=== PATIENT | female | born 1945 | race Caucasian/White ===

== ENCOUNTER 2017-08-02 10:23 | Outpatient (CLI) | payer BC ==
--- NOTE | 2017-08-02 15:33 | CT ---
CTA OF THE ABDOMEN AND PELVIS WITH BILATERAL LOWER EXTREMITY RUNOFF UTILIZING IV CONTRAST AND 3D REF ORMATTED IMAGING: INDICATION: Pain within both legs and feet for 1 year with a history of surgical repair of a hernia and appendec beronica. COMPARISON: None. FINDINGS: ABDOMEN: The lung bases are clear. There is mild fatty infiltration of the liver. There is heterogeneous enhancement of the spleen due to the phase of contrast enhancement at the mayelin e of imaging. The pancreas and adrenal glands appear within normal limits. The kidneys are normal-appearing. No free fluid or enlarged lymph nodes are evident. PELVIS: Bladder, rectum, and perirectal soft tissues appear within normal limits. There is a mild amount of retained stool. Small bowel is normal-appearing. The bladder is unremarkable appearing. There is a fat-containing left inguinal hernia. VACULATURE: The celiac, SMA, and renal arteries appear widely patent. The ARTHUR is widely patent. No aneurysmal dilatation is evident. There is moderate atherosclerotic calcification noted involving the abdomina l aorta. There are moderate atherosclerotic calcifications involving the common iliac arteries bilaterally. No hemodynamically significant stenosis is evident. The right external iliac artery demonstrates some mild luminal caliber narrowing due to atherosclero tic irregularity along its mid to distal segment. The right common femoral artery is widely patent. The bifurcation is patent. The right superficial femoral artery is widely patent. The right popl iteal artery is widely patent. At the level of the distal right popliteal artery, there is opacific ation of an adjacent vein and portions of the popliteal vein suspicious for changes of an underlying small AV malformation in this location. This is best seen on image 304 of series 2. There is appr opriate opacification of the tibioperoneal trunk and anterior tibial artery. There is 3-vessel runo ff to the level of the ankle. There is mild atherosclerotic irregularity involving the left common iliac artery as well as the lef t external iliac artery. There is mild irregularity involving the left common femoral artery. The femoral bifurcation appears within normal limits. The profunda femoral artery and superficial femor al artery appear widely patent. The left popliteal artery is widely patent. The trifurcation is no rmal-appearing. There is 3-vessel runoff to the level of the ankle. OSSEOUS STRUCTURES: There are bilateral pars defects at L5 with grade I anterolisthesis. There is vacuum disk phenomeno n seen at all lumbar intervertebral levels. There is a right caudad paracentral disk extrusion with gas at L2-3 likely inducing at least mild ce ntral canal narrowing. IMPRESSION: 1. No hemodynamically significant stenosis, occlusion, or aneurysmal formation demonstrated. There is opacification of the adjacent distal right popliteal vein from the right popliteal artery suspic ious for an underlying small arteriovenous malformation in the region of the proximal right foreleg. 2. Moderate atherosclerotic disease of the abdominopelvic vasculature and lower extremities. 3. Fatty liver. 4. Pars defects at L5 with grade I anterolisthesis. 5. Right caudad extending paracentral extrusion containing some vacuum disk phenomenon suspicious f or at least mild to moderate central canal narrowing at the L2-3 and L3 vertebral levels. MR of the lumbar spine would be helpful for further evaluation. POS: YESICA
[2017-08-02] MEDS ORDERED: Iopamidol 370 76% 100 ML VIAL ONE (16:38)
== END 2017-08-02 10:24 | disposition home or self-care (01) ==
LOC: CT 10:23
PROVIDERS: ATTEND Thoracic Surgery (Cardiothoracic Vascular Surgery)
DX: I70.213 Atherosclerosis of native arteries of extremities with intermittent claudication, bilateral legs (principal); K76.0 Fatty (change of) liver, not elsewhere classified; M43.16 Spondylolisthesis, lumbar region
CPT/HCPCS: 36415; 75635; 82565

== ENCOUNTER 2018-08-28 12:21 | Outpatient (CLI) | payer BC ==
--- NOTE | 2018-08-28 15:19 | MRI ---
MRI LUMBAR SPINE WITHOUT IV CONTRAST: HISTORY: A 73-year-old female with a history of low back pain and left leg pain. TECHNIQUE: Multiplanar, multisequence MRI examination of the lumbar spine is performed. FINDINGS: The conus medullaris region is unremarkable, with termination at the L1 level. At L1-L2, there is no significant canal or foraminal stenosis. At L2-L3, there is fairly severe type I endplate changes. There is some generalized disk bulging wit h a small focal right paracentral protrusion, with overall moderate central canal and bilateral reces s stenosis, slightly worse on the right side, with moderate bilateral foraminal stenosis. At L3-L4, diffuse disk bulging with ligament and facet hypertrophic changes, with mild to moderate la teral recess stenosis and foraminal stenosis. At L4-L5, there is some diffuse disk bulging with a small annular fissure with some fluid within the facet joints bilaterally. There is some mild lateral recess stenosis and foraminal stenosis. At L5-S1, there are bilateral pars defects with approximately 1 cm of anterolisthesis of L5 on S1. T here are some type I endplate changes. Moderate central canal and lateral recess stenosis, and moder ate to bilateral severe foraminal stenosis. IMPRESSION: 1. Variable severity multilevel canal, lateral recess, and foraminal stenosis, most marked at L2-L3 and at L5-S1, with pars defects at L5-S1, with approximately 1 cm of anterior listhesis of L1 on S1. 2. Prominent type I endplate changes at L2-L3 and at L5-S1. Other findings as above. POS: YESICA
== END 2018-08-28 12:22 | disposition home or self-care (01) ==
LOC: BICMRI 12:21
PROVIDERS: ATTEND Family Medicine
DX: M54.5 Low back pain (principal); M48.061 Spinal stenosis, lumbar region without neurogenic claudication; M99.83 Other biomechanical lesions of lumbar region; M48.07 Spinal stenosis, lumbosacral region; M99.84 Other biomechanical lesions of sacral region; M51.86 Other intervertebral disc disorders, lumbar region; M43.17 Spondylolisthesis, lumbosacral region; M51.26 Other intervertebral disc displacement, lumbar region
CPT/HCPCS: 72148